=== PATIENT | male | born 1960 | race Caucasian/White ===

== ENCOUNTER 2022-08-14 14:03 | Inpatient (IN) | payer BC, SELFPAY ==
[2022-08-14] VITALS (11 sets, daily range): BP systolic 139–169; BP diastolic 73–99; PULSE 73–97; RESP 12–20; TEMP 37–37.2; O2SAT 98–100; BMI 21.6
--- NOTE | ~2022-08-14 | XR_ITS ---
EXAMINATION: XR chest 1V portable INDICATION: Pain after fall TECHNIQUE: Portable AP chest at 1433 hours COMPARISON: None available FINDINGS: The lungs are free of acute opacities. No pleural effusion or pneumothorax. The cardiomedia stinal silhouette is normal. There is mild irregularity in the posterolateral cortex of the right amara th rib. IMPRESSION: 1. No acute cardiopulmonary abnormality. 2. Mild irregularity of the posterolateral cortex of the right ninth rib consistent with age-indeterm inate fracture. Reviewed, dictated and finalized at location F. LOTINE OPERATOR IMPRESSION: 1. No acute cardiopulmonary abnormality. 2. Mild irregularity of the posterolateral cortex of the right ninth rib consis tent with age-indeterminate fracture.
--- NOTE | ~2022-08-14 | XR_ITS ---
XR hip RT 2V w AP pelvis DATE: 08/14/2022 14:55 INDICATION: Fall today. Right hip pain. TECHNIQUE: AP pelvis. AP, lateral and crosstable lateral views of right hip COMPARISON: None FINDINGS: There is a comminuted intertrochanteric fracture of the right hip. There is minimal lateral displacement. No right hip dislocation. Diffuse osteopenia. No pelvic fracture is evident. Alignment at the pubic symphysis and sacroiliac zainab ints. No fracture or dislocation of the left hip. There is degenerative disease of the lumbar spine. Abdominal aortic and bilateral iliac and femoral artery calcifications. IMPRESSION: Comminuted intertrochanteric right hip fracture Reviewed, dictated and finalized at location B. CLOCK INSPECTOR
--- NOTE | ~2022-08-14 | XR_ITS ---
XR surgery orthopedic DATE: 08/15/2022 14:39 INDICATION: ORIF right intertrochanteric hip fracture TECHNIQUE: Multiple spot C-arm images of the right hip and femur 1 minute 51 seconds fluoroscopy time 0.4671 mGym2 COMPARISON: 08/14/2022 right hip FINDINGS: There is antegrade femoral javier extending into the distal femoral shaft, with 2 through comp ression screws extending into the femoral head and another interlocking transverse screw at the proxi mal femoral shaft. There is virtually anatomic position and alignment of the major proximal and distal fracture fragment s, with a medially displaced lesser trochanteric fracture fragment. IMPRESSION: ORIF right intertrochanteric hip fracture Reviewed, dictated and finalized at Location A. Reviewed, dictated and finalized at location B. TIER
--- NOTE | ~2022-08-14 | CT_ITS ---
EXAMINATION: CT brain wo con DATE: 08/14/2022 14:56 INDICATION: Fall last night. Right hip fracture. TECHNIQUE: Computed tomography (CT) of the head was performed without intravenous contrast. The mA wa s adjusted according to patient size. Iterative reconstruction technique was employed. Exam dose: 60 5.33 mGy-cm total exam DLP. COMPARISON: None FINDINGS: Bilateral carotid siphon internal carotid artery calcifications. No intracranial mass lesion or hemorrhage or cerebrovascular accident. No midline shift or mass effec t effect. Normal ventricular size. No subdural or epidural hematoma. The orbital structures are unremarkable. Up to approximately 1.4 x 1.8 cm polyp or mucous retention cyst of the anterolateral aspect of the ri ght sphenoid sinus. The paranasal sinuses and mastoid air cells are otherwise unremarkable. No fracture or bone destruction of the cranial vault. IMPRESSION: No skull fracture or acute intracranial finding Cerebral atherosclerosis Reviewed, dictated and finalized at Location A. Reviewed, dictated and finalized at location B. 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
--- NOTE | 2022-08-14 14:14 | ECG_ITS ---
Measurements Intervals [place] Rate: 91 P: 74 MN: 146 QRS: 69 QRSD: 95 T: 77 QT: 395 QTc: 488 Interpretive Statements SINUS RHYTHM DELAYED PRECORDIAL R/S TRANSITION BASELINE ARTIFACT- I, II, III, AVR, AVL, AVF, V2-V6 BORDERLINE ECG NO PREVIOUS ECG AVAILABLE FOR COMPARISON Electronically Signed On 08-14-2022 15:21:44 VET ASSISTANT by Jun Farley D.O.
--- NOTE | 2022-08-14 14:34 | ED.LOWEXIN ---
HPI - Extremity Injury (Lower) General Chief Complaint: Extremity Injury, Lower Stated Complaint: hip pain Time Seen by Provider: 08/14/22 14:07 Source: RN notes reviewed History of Present Illness HPI Narrative: Patient presents emergency department from home via EMS for right hip pain. Patient states that last night he had been drinking alcohol and fell in his garage she states that he has been laying on the floor of his garage all night until he was found today he states he has severe right hip pain since the fall and has been able to move his right hip. He denies striking his head or any loss of consciousness he denies any chest pain shortness of breath abdominal pain nausea vomiting. He states he does drink daily and his last drink was last night. He states that he was wearing sandals and not shoes while he was laying in the garage Related Data Allergies Allergy/AdvReac Type Severity Reaction Status Date / Time No Known Allergies Allergy Mild Unverified 05/13/09 07:25 Review of Systems Review of Systems: Gen.: Denies fevers or chills Eyes: Denies eye pain or visual change ENT: Denies congestion Respiratory: Denies shortness of breath or cough CV: Denies chest pain or palpitations GI: Denies abdominal pain nausea, emesis Musculoskeletal: See HPI Neuro: Denies numbness, tingling, weakness or focal weakness Skin: Denies rash Except as documented, all other systems reviewed and negative COUNTS INCLUDE 234 BEDS AT THE [facility] Past Medical History Medical History (Updated 08/14/22 @ 16:58 by Chester Young DO) Patient denies significant medical history Social History Social History (Updated 08/14/22 @ 14:36 by Chester Young DO) Smoking status: Never smoker Exam Narrative: APPEARANCE: No acute distress, nontoxic, resting in bed EYES: EOMI PERRL HEENT: Normocephalic, atraumatic, OMM Neck: Supple no midline tenderness palpation full range of motion of the neck without pain RESPIRATORY: No respiratory distress Clear to auscultation bilaterally with no rhonchi wheezing or rales. CARDIOVASCULAR: Regular rate and rhythm without murmurs rubs or gallops. ABDOMINAL: Soft, nontender, nondistended, no rebound or guarding MUSCULOSKELETAl: Moves all extremities. No clubbing, cyanosis or edema. No tenderness of bilateral upper extremities and left lower extremity tender palpation diffusely of the right hip with pain with any movement the right hip no tenderness of the right knee or ankle dorsalis pedis pulses neurovascular intact NEURO: Awake and alert x 4. Following commands, speech normal, no focal deficits SKIN:: Warm, dry. No rashes lesions or abrasions PSYCHIATRIC: Normal affect/mood, Course Course Emergency Course: Discussed with Dr. Mcallister presentation work-up agrees with consult Discussed with GOLD Vazquez for Dr. lopez agrees with admission Discussed with patient and family results of workup and diagnosis. Discussed need for admission. Patient and family understand and agree to current treatment plan Vital Signs Vital signs: Vital Signs Temperature 99 F 08/14/22 14:09 Pulse Rate 86 08/14/22 14:09 Respiratory Rate 16 08/14/22 14:09 Blood Pressure 157/83 H 08/14/22 14:09 Pulse Oximetry 100 08/14/22 14:09 Temperature 99 F 08/14/22 14:09 Pulse Rate 87 08/14/22 16:01 Respiratory Rate 16 08/14/22 16:01 Blood Pressure 154/84 H 08/14/22 16:01 Pulse Oximetry 100 08/14/22 16:01 MDM - Extremity Injury (Lower) Lab Data Result diagrams: 08/14/22 15:11 08/14/22 15:11 Labs: Lab Results 08/14/22 08/14/22 08/14/22 Range/Units 15:11 15:11 15:11 WBC 12.8 H (4.5-10.0) K/mm3 RBC 3.82 L (4.6-6.20) M/mm3 Hgb 12.8 L (14.0-18.0) g/dL Hct 37.0 L (42.0-52.0) % MCV 96.9 (80-100) fl MCH 33.5 (26-34) pg MCHC 34.6 (32-36) g/dl RDW 12.7 (11.5-14.5) % Plt Count 213 (150-375) k/mm3 MPV 8.7 (7.4-10.4) fl Immature Gran % (Auto) 0.5
[2022-08-14] MEDS: MORPHINE SULFATE (*CRX) 4 MG/ML INJ IV PUSH ×4 (14:36→23:55)
[2022-08-14] MEDS: SODIUM CHLORIDE 0.9% IV 1,000 ML 999 ML IV CONT (14:36)
[2022-08-14] MEDS: THIAMINE HCL 200 MG/2 ML VIAL 100 MG IV PUSH (14:37)
[2022-08-14 15:27] LABS: Basophils Percent Auto 0.2 % (0.2-1.2); Eosinophils Percent Auto 0.2 % (0-4.4); Hemoglobin 12.8 g/dL (14.0-18.0); Immature Granulocyte Absolute 0.06 K/mm3 (0.00-0.031); Immature Granulocyte Percent A 0.5 % (0-0.5); Lymphocytes Absolute Auto 0.69 K/mm3 (0.9-3.2); Lymphocytes Percent Auto 5.4 % (18.3-44.2); Mean Corpuscular HGB Conc 34.6 g/dl (32-36); Mean Corpuscular Hemoglobin 33.5 pg (26-34); Mean Corpuscular Volume 96.9 fl (80-100); Mean Platelet Volume 8.7 fl (7.4-10.4); Monocytes Absolute Auto 0.6 K/mm3 (0.1-0.6); Monocytes Percent Auto 4.5 % (2.6-8.5); Neutrophils Absolute Auto 11.4 K/mm3 (1.3-6.7); Neutrophils Percent Auto 89.2 % (45.5-73.1); Platelet Count Result 213 k/mm3 (150-375); Red Blood Count 3.82 M/mm3 (4.6-6.20); Red Cell Distribution Width 12.7 % (11.5-14.5); White Blood Count 12.8 K/mm3 (4.5-10.0)
[2022-08-14 15:38] LABS: Appearance Urine Clear (Clear); Bilirubin Urine Negative (Negative); Blood Urine Trace-intact (Negative); Color Urine Yellow (Yellow); Glucose Urine UA Negative (Negative); Ketones Urine Negative (Negative); Leukocyte Esterase Ur Negative LEU/UL (Negative); Nitrate Urine Negative (Negative); Protein Urine Negative (Negative); Urobilinogen Urine 0.2 mg/dL (<2.0)
[2022-08-14 15:38] LABS: INR 1.1; Prothrombin Time 13.6 Seconds (11.1-14.7)
[2022-08-14 15:40] LABS: Partial Thromboplastin Time 26.2 SECONDS (22.3-36.8)
[2022-08-14 15:41] LABS: Ethanol 38 mg/dL (<10)
[2022-08-14 15:44] LABS: Alanine Aminotransferase 24 U/L (6-50); Albumin Level 4.3 g/dL (3.5-5.1); Alkaline Phosphatase 50 U/L (38-126); Anion Gap 12 mmol/L (8-16); Aspartate Amino Transferase 32 U/L (17-59); Bilirubin,Total 0.6 mg/dL (0.2-1.3); Blood Urea Nitrogen 6 mg/dL (9-20); Calcium 8.3 mg/dL (8.4-10.2); Carbon Dioxide 19 mmol/L (22-30); Chloride 98 mmol/L (98-107); Creatine Kinase 195 U/L (55-170); Estimated CRCL calculation 113 ml/min; Estimated Glomerular Filt Rate > 60; Glucose 97 mg/dL (65-110); Magnesium 1.9 mg/dL (1.6-2.3); Potassium 4.3 mmol/L (3.4-5.0); Sodium 129 mmol/L (137-145)
[2022-08-14 16:02] LABS: Influenza A QL RT-PCR Negative (Negative); Influenza B QL RT-PCR Negative (Negative); SARS-CoV-2 RNA PCR Negative
[2022-08-14 16:20] LABS: Mucus Urine Rare /lpf; Squamous Epithelial Cell Urine Rare /hpf (Few); WBC Urine 0-3 /hpf
[2022-08-14 16:22] LABS: Add Urine Microscopic? YES
[2022-08-14] MEDS: NICOTINE (*PBKC) 21 MG PATCH 1 PATCH TRANSDERM (17:58)
--- NOTE | 2022-08-14 18:10 | ADMGEN ---
This patient, Jose Mccoy, was admitted to Medical Room 256-. Patient/family oriented to hospital policies and general routines including ID bracelet, bed and alarms, visiting hours, pain management, procedures, bathroom and other care routines, personal items, smoking policy, room service/diet, and visiting hours. Information on how to activate the Rapid Response Team has been discussed. Patient/Family are encouraged to report perceived risks to care and to ask questions if they do not understand what they are told or what they should do.
[2022-08-14 21:28] LABS: Glucose Point of Care 111 mg/dl (65-105)
--- NOTE | 2022-08-14 23:44 | PM.IMHP ---
H&P: HPI History of Present Illness Date/Time: 08/14/22 22:30 Chief Complaint: Right hip pain after fall Narrative: This is a 62-year-old male patient who lives home alone. The patient admits to drinking at least 6 beers plus shots on a daily basis. The patient was brought into the emergency room via EMS after falling last night after drinking alcohol. The patient fell in his garage and had been laying on the floor in the garage all night until he was found today. The patient was complaining of severe right hip pain and has been able to move his right hip. However there is obvious external rotation and shortened right leg. The patient denies striking his head or losing consciousness. The patient stated that he was wearing sandals and not shoe swelling in the garage. He has no prior medical history. His white count was noted to be 12.8. His H&H is 12.8 and 37.0. His sodium level was 129. Right hip x-ray was read as comminuted intratrochanteric right hip fracture. Head CT was read as no skull fracture or acute intracranial finding. Cerebral atherosclerosis. Chest x-ray was read as no acute cardiopulmonary abnormality. Mild irregularity of the posterior lateral cortex of the right 9th rib consistent with age indeterminate fracture. The patient was given IV fluids in the emergency room as well as thiamin morphine and a nicotine patch. Ortho has been consulted. Ortho has been consulted. The patient is being admitted for observation status on the date of service of 08/14/2022. Review of Systems Review of Systems: See HPI All systems reviewed & are unremarkable except as noted in HPI and below Constitutional: Constitutional: Reports as per HPI and Reports no additional constitutional complaints Eyes: Eyes: Reports as per HPI and Reports no additional eye complaints ENT: Reports system reviewed and no additional complaints, except as documented and Reports Normal hearing present Cardiovascular: Cardiovascular: Reports no additional cardiovascular complaints Respiratory: Respiratory: Reports no additional respiratory complaints and Reports no additional respiratory complaints Gastrointestinal: Gastrointestinal: Reports as per HPI and Reports no additional gastrointestinal complaints Musculoskeletal: Musculoskeletal: Reports no additional musculoskeletal complaints Integumentary/Breasts: Skin/Breast: Reports system reviewed and no additional complaints, except as docu and Reports as per HPI Neurologic: Reports system reviewed and no additional complaints, except as documented, Reports as per HPI and Reports Normal hearing present Psychiatric: Psychiatric: Reports no additional psychiatric complaints and Reports as per HPI Endocrine: Endocrine: Reports no additional endocrine complaints Hematologic/Lymphatic: Hematologic/Lymphatic: Reports no additional hematologic/lymphatic complaints Allergic/Immunologic: Allergic/Immunologic: Reports no additional allergic/immunologic complaints [facility] Past Medical History Medical History (Updated 08/15/22 @ 00:18 by Taylor Betancourt NP) Tobacco abuse Surgical History Surgical History (Updated 08/15/22 @ 00:12 by Taylor Betancourt NP) History of appendectomy Family History Family History Mother Heart problem Father Emphysema lung Social History Social History (Updated 08/15/22 @ 00:14 by Taylor Betancourt NP) Social History: The patient smokes at least 2 packs of cigarettes a day. The patient lives home alone and is . He has 2 children. He does not have a durable power employee benefits attorney for healthcare. 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 The patient stated that he drinks 6+ beers daily sometimes he even drink shots with his 6 pack. Code status full code Smoking packs per day: 2 Smoking cigarettes per day: 40.0 Years smoked: 50 Smoking pack-year
[2022-08-15] VITALS (19 sets, daily range): BP systolic 119–155; BP diastolic 61–87; PULSE 69–88; RESP 13–18; TEMP 36.6–38.1; O2SAT 95–100
[2022-08-15 00:27] LABS: Glucose Point of Care 100 mg/dl (65-105)
[2022-08-15 00:30] LABS: Anion Gap 5 mmol/L (8-16); Blood Urea Nitrogen 9 mg/dL (9-20); Calcium 8.3 mg/dL (8.4-10.2); Carbon Dioxide 25 mmol/L (22-30); Chloride 100 mmol/L (98-107); Estimated CRCL calculation 113 ml/min; Estimated Glomerular Filt Rate > 60; Glucose 90 mg/dL (65-110); Sodium 130 mmol/L (137-145)
[2022-08-15] MEDS: DEXTROSE 5%/0.45% SOD CHL 1,000 ML 125 ML IV CONT (00:57)
[2022-08-15] MEDS: MORPHINE SULFATE (*CRX) 4 MG/ML INJ IV PUSH ×3 (02:40→08:56)
[2022-08-15 06:19] LABS: Basophils Percent Auto 0.4 % (0.2-1.2); Eosinophils Percent Auto 0.5 % (0-4.4); Hematocrit 30.8 % (42.0-52.0); Hemoglobin 10.8 g/dL (14.0-18.0); Immature Granulocyte Absolute 0.02 K/mm3 (0.00-0.031); Immature Granulocyte Percent A 0.3 % (0-0.5); Lymphocytes Absolute Auto 1.63 K/mm3 (0.9-3.2); Lymphocytes Percent Auto 22.1 % (18.3-44.2); Mean Corpuscular HGB Conc 35.1 g/dl (32-36); Mean Corpuscular Hemoglobin 33.1 pg (26-34); Mean Corpuscular Volume 94.5 fl (80-100); Mean Platelet Volume 8.9 fl (7.4-10.4); Monocytes Absolute Auto 0.9 K/mm3 (0.1-0.6); Monocytes Percent Auto 12.2 % (2.6-8.5); Neutrophils Absolute Auto 4.7 K/mm3 (1.3-6.7); Neutrophils Percent Auto 64.5 % (45.5-73.1); Platelet Count Result 178 k/mm3 (150-375); Red Blood Count 3.26 M/mm3 (4.6-6.20); Red Cell Distribution Width 12.6 % (11.5-14.5); White Blood Count 7.4 K/mm3 (4.5-10.0)
[2022-08-15 06:38] LABS: Alanine Aminotransferase 19 U/L (6-50); Albumin Level 3.3 g/dL (3.5-5.1); Alkaline Phosphatase 41 U/L (38-126); Anion Gap 5 mmol/L (8-16); Aspartate Amino Transferase 24 U/L (17-59); Bilirubin,Total 0.8 mg/dL (0.2-1.3); Blood Urea Nitrogen 8 mg/dL (9-20); Calcium 7.8 mg/dL (8.4-10.2); Carbon Dioxide 25 mmol/L (22-30); Chloride 99 mmol/L (98-107); Estimated CRCL calculation 113 ml/min; Estimated Glomerular Filt Rate > 60; Glucose 100 mg/dL (65-110); Potassium 3.9 mmol/L (3.4-5.0); Sodium 129 mmol/L (137-145)
[2022-08-15 06:41] LABS: Glucose Point of Care 106 mg/dl (65-105)
[2022-08-15 07:05] LABS: Sodium Urine Random 82 meq/L
--- NOTE | 2022-08-15 07:39 | PM.IMPN ---
Progress Note: A&P Assessment and Plan (1) Closed intertrochanteric fracture of right femur: Code(s): S72.141A - Displaced intertrochanteric fracture of right femur, initial encounter for closed fracture Status: Acute Assessment and Plan: -ortho has been consulted. -pain reasonably controlled per patient - cont. current. -NPO last night, procedure planned this afternoon. (2) Acute hyponatremia: Code(s): E87.1 - Hypo-osmolality and hyponatremia Status: Acute Assessment and Plan: - suspect beer potomania. - Change IVF from d5 half to d5 normal. - repeat bmp am. - urine osm pending, Na urine 82. If worsening consider free water restrict, cortisol/acth/tsh measurement. (3) Alcohol abuse: Code(s): F10.10 - Alcohol abuse, uncomplicated Status: Acute Assessment and Plan: - Ciwa protocol librium/lorazepam prn. - Thiamine/folate - recommend to cont. upon discharge. (4) Tobacco abuse: Code(s): Z72.0 - Tobacco use Status: Acute Assessment and Plan: 100 pack year history per patient. Does not have PCP or medical care routinely. - Recommend o/p low dose ct screening per uspstf guidelines. - Arrange for outpatient [facility] f/u PCP. (5) Normocytic anemia: Code(s): D64.9 - Anemia, unspecified Status: Acute Assessment and Plan: Hgb 12.8 on presentation, normocytic. 10.8 this am. Presume a dilutional effect 2/2 to fluids. Received TXA. - repeat cbc am (6) Fall: Code(s): W19.XXXA - Unspecified fall, initial encounter Status: Acute Assessment and Plan: Denies syncope/dizziness/lightheadedness. Tripped d/t pet. No LOC during fall. Down for >12 hours per patient. CPK 195. Time Spent With Patient Time with patient: 15 - 25 minutes Subjective Date/time seen: 08/15/22 07:39 Interval history: Patient c/o pain in right hip this morning with movement, notes pain is dull and somewhat improved from presentation with current medications - pain exacerbated by movement. Denies any loss of sensation distal right extremity. Review of Systems Review of Systems: Patient endorses 6-10 drinks daily, denies any hx seizures or withdrawal - does take occasional days off of drinking without symptoms Constitutional: Constitutional: Reports no additional constitutional complaints Cardiovascular: Cardiovascular: Reports no additional cardiovascular complaints Respiratory: Comments: - notes general slight morning cough. Gastrointestinal: Gastrointestinal: Reports no additional gastrointestinal complaints Genitourinary: Genitourinary: Reports no additional male genitourinary complaints Neurologic: Reports system reviewed and no additional complaints, except as documented Exam Narrative: No acute distress, patient coherent/conversational without tremor. Const: General: no acute distress Other: Pain with movement. Eyes: Sclera: sclerae normal Neck: Neck: supple Resp: Effort & Inspection: normal respiratory effort Auscultation: clear to auscultation bilaterally Cardio: Rate: regular rate Rhythm: regular rhythm Other: no m/r/g. GI: GI Palp: Yes Soft to palpation Skin: General skin exam: normal color Neuro: Speech: normal speech Sensory Exam: normal sensation Other: Bilat lower ext. distal sensation intact, nv intact. Extrem: Other: RLE external rotation - mildly tender to palpation of the right hip. Psych: Mental Status: mental status grossly normal Affect: normal affect Objective Data Vital Signs Vital Signs: Vital Signs - 24 hr 08/14/22 14:09 08/14/22 15:17 08/14/22 16:01 Temperature 99 F Pulse Rate 86 87 87 Respiratory Rate 16 12 16 Blood Pressure 157/83 H 152/95 H 154/84 H Pulse Oximetry 100 100 100 Oxygen Delivery 08/14/22 16:16 08/14/22 17:01 08/14/22 17:16 Temperature Pulse Rate 97 87 87 Respiratory Rate 13 12 15 Blood Pressure 156/91 H 169/87 H 160/99 H Pu
--- NOTE | 2022-08-15 07:47 | PM.CNOR ---
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 New problem denies any prior hip problems and has been in good health. He denies any other injury. He thought he might have hit his head but denies loss of consciousness from the fall but he recalls he did pass out due to the pain. CT of the brain showed no evidence of acute bleeding or trauma. He lost his he does have 2 children that are available for him. Is not sure that they would be able to stay with him continuously and he may require rehab during his recuperation. He drinks a great deal. He drinks a 6 pack every night and additional shots of hard liquor. He also smokes 2 packs of cigarettes a day and has smoked for 50 years. His oxygen saturation on room air is 96%. Nicotine patch has been applied. He has been started on thiamine folic acid and has p.r.n. Librium ordered in case he develops delirium tremens. On exam today is completely alert and oriented. He is excellent conversational list and historian. He denies any other areas of pain or injury other than the right hip. His right leg is quite short and externally rotated 90?. He has intact sensation in the right foot and palpable pedal pulses and wiggles his toes. He is thin. He is 74.4 kg. He has muscular legs. 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 Impression: Patient has a comminuted right intertrochanteric hip fracture. I have recommended internal fixation with trochanteric nail and sliding hip screw device. I have discussed risks of surgery with him detail. He has no personal history of DVT I explained he will be on a blood thinner after surgery for 5 weeks. Risk of infection was discussed which is higher in smokers. Risk of delayed healing is common in smokers and risk of arthritis developing discussed. He has anemia hemoglobin 10.8 and he has increased risk of needing transfusion. He is at risk for delirium tremens. Risk of mortality was discussed with him and all of his questions were answered. We are scheduled to proceed at 2:00 a.m. this afternoon. Patient will receive TXA before surgery as well as vancomycin and Ancef for prophylaxis against infection. History of Present Illness HPI Consult date: 08/15/22 Chief complaint: right hip fracture,hyponatremia,alcohol abuse PMFSH Past Medical History Medical History (Updated 08/15/22 @ 00:18 by Taylor Betancourt NP) Tobacco abuse Surgical History Surgical History (Updated 08/15/22 @ 00:12 by Taylor Betancourt NP) History of appendectomy Family History Family History Mother Heart problem Father Emphysema lung Social History Social History (Updated 08/15/22 @ 00:14 by Taylor Betancourt NP) Social History: The patient smokes at least 2 packs of cigarettes a day. The patient lives home alone and is . He has 2 children. He does not have a durable power criminal defense attorney for healthcare. 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 The patient stated that he drinks 6+ beers daily sometimes he even drink shots with his 6 pack. Code status full code Smoking packs per day: 2 Smoking cigarettes per day: 40.0 Years smoked: 50 Smoking pack-years: 100.00 Smoking status: Current every day smoker Tobacco type: cigarettes Alcohol intake: current Drinks per week: 60 Substance use type: marijuana Other substance u
[2022-08-15 08:33] LABS: Glucose Point of Care 117 mg/dl (65-105)
[2022-08-15] MEDS: THIAMINE HCL 200 MG/2 ML VIAL 100 MG IV PUSH (08:55)
[2022-08-15] MEDS: FOLIC ACID 1 MG/0.2 ML INJ IV PUSH (08:55)
[2022-08-15] MEDS: DEXTROSE 5%/0.9% SOD CHL 1,000 ML 125 ML IV CONT (10:40)
--- NOTE | 2022-08-15 10:43 | WPDANESEPPF ---
Anes - Initial Pre Proc Eval Procedure: Operation Date: 08/15/22 14:00 Proposed Procedures p Right Intertrochanteric Nail - Remigio Mcallister MD Date/Time: 08/15/22 10:43 Surgeon: Chata Bryson PA-C Pre Op Diagnosis: right hip fracture,hyponatremia,alcohol abuse Patient Data Age: 62 Gender: M Height: 1.85 m Weight: 74.4 kg Last Vital Signs Temp 36.6 C 08/15/22 06:00 Pulse 70 08/15/22 06:00 Resp 14 08/15/22 06:00 BP 119/61 08/15/22 08:00 Pulse Ox 96 08/15/22 06:00 O2 Del Method Room Air 08/15/22 10:37 Allergies Allergy/AdvReac Type Severity Reaction Status Date / Time No Known Allergies Allergy Mild Unverified 08/14/22 19:36 Home Medications Medication Instructions Recorded Confirmed Type No Home Medications 08/14/22 08/14/22 History Laboratory Tests 08/14/22 08/14/22 08/14/22 15:11 15:11 15:11 WBC 12.8 K/mm3 H K/mm3 (4.5-10.0) RBC 3.82 M/mm3 L M/mm3 (4.6-6.20) Hgb 12.8 g/dL L g/dL (14.0-18.0) Hct 37.0 % L % (42.0-52.0) MCV 96.9 fl fl (80-100) MCH 33.5 pg pg (26-34) MCHC 34.6 g/dl g/dl (32-36) RDW 12.7 % % (11.5-14.5) Plt Count 213 k/mm3 k/mm3 (150-375) MPV 8.7 fl fl (7.4-10.4) Immature Gran % (Auto) 0.5 % % (0-0.5) Neut % (Auto) 89.2 % H % (45.5-73.1) Lymph % (Auto) 5.4 % L % (18.3-44.2) [place] % (Auto) 4.5 % % (2.6-8.5) Eos % (Auto) 0.2 % % (0-4.4) Baso % (Auto) 0.2 % % (0.2-1.2) Lymph # (Auto) 0.69 K/mm3 L K/mm3 (0.9-3.2) [place] # (Auto) 0.6 K/mm3 K/mm3 (0.1-0.6) Eos # (Auto) 0.0 K/mm3 K/mm3 (0-0.3) Baso # (Auto) 0.0 K/mm3 K/mm3 (0.0-0.1) Abs Immat Gran (auto) 0.06 K/mm3 H K/mm3 (0.00-0.031) Absolute Neuts (auto) 11.4 K/mm3 H K/mm3 (1.3-6.7) Absolute Nucleated RBC 0.0 K/mm3 K/mm3 (0.0-0.012) Nucleated RBC % 0.0 % % (0.0-0.2) PT 13.6 Seconds Seconds (11.1-14.7) INR 1.1 APTT 26.2 SECONDS SECONDS (22.3-36.8) Sodium 129 mmol/L L mmol/L (137-145) Potassium 4.3 mmol/L mmol/L (3.4-5.0) Chloride 98 mmol/L mmol/L (98-107) Carbon Dioxide 19 mmol/L L mmol/L (22-30) Anion Gap 12 mmol/L mmol/L (8-16) BUN 6 mg/dL L mg/dL (9-20) Creatinine 0.60 mg/dL L mg/dL (0.7-1.3) Estim Creat Clear Calc 113 ml/min ml/min Estimated GFR > 60 (59 - ) Glucose 97 mg/dL mg/dL (65-110) POC Capillary Glucose Calcium 8.3 mg/dL L mg/dL (8.4-10.2) Magnesium 1.9 mg/dL mg/dL (1.6-2.3) Total Bilirubin 0.6 mg/dL mg/dL (0.2-1.3) AST 32 U/L U/L (17-59) ALT 24 U/L U/L (6-50) Alkaline Phosphatase 50 U/L U/L (38-126) Total Creatine Kinase 195 U/L H U/L (55-170) Total Protein 7.0 g/dL g/dL (6.3-8.2) Albumin 4.3 g/dL g/dL (3.5-5.1) Urine Color Urine Appearance Urine pH Ur Specific [place] Urine Protein Urine Glucose (UA) Urine Ketones Ur Blood (Man) Urine Nitrate Urine Bilirubin Urine Urobilinogen Leukocyte Esterase Rfl Urine RBC Urine WBC Ur Squamous Epith Cells Hyaline Casts Urine Mucus Urine Osmolality Ur Random Sodium Ethyl Alcohol Influenza A (RT-PCR) Influenza B (RT-PCR) SARS-CoV-2 RNA (RT-PCR) Blood Type Antibody Screen 08/14/22 08/14/22 08/14/22 15:11 15:11 15:11 WBC RBC Hgb Hct MCV
--- NOTE | 2022-08-15 12:48 | WPDHPUPDATE1 ---
History and Physical Update Update Date/Time: 08/15/22 12:48 History and Physical has been reviewed, including an updated exam of the patient. There are NO changes in the patient's condition. Risks, benefits, and alternatives have been discussed and questions answered. Patient agrees to proceed with procedure.
--- NOTE | 2022-08-15 12:53 | PC.NURSE ---
On 08/15/22, the student, [Lindsey Wade], provided care and completed [facility] documentation on this patient. I have reviewed the student's documentation and agree with the findings.
[2022-08-15] MEDS: TRANEXAMIC ACID 1,000MG/ISO100 1,000 MG/100 ML BAG 200 MG IVPB (13:00)
[2022-08-15] MEDS: LACTATED RINGERS 1,000 ML 30 ML IV CONT (13:00)
[2022-08-15] MEDS: ceFAZolin 2 GM/D5W 50 ML 2 GM/50 ML BAG IVPB (13:18)
[2022-08-15] MEDS: ceFAZolin SODIUM 1 GM VIAL (13:56)
--- NOTE | 2022-08-15 14:44 | SUR.OPER ---
150mL of yellow urine drained from savage at the end of the case
--- NOTE | 2022-08-15 15:07 | W.PM.PROC2 ---
Procedure Note - Detailed Date of Procedure 08/15/22 Pre-op Diagnosis Four part right intertrochanteric hip fracture,hyponatremia,alcohol abuse Post-op Diagnosis Same Procedure Performed Open reduction internal fixation right intertrochanteric hip fracture with Arthrex ES trochanteric nail device Surgeon Remigio Mcallister MD Air Quality Technician Carine Antonio Anesthesia General Description of Procedure Patient was brought to the operating room and general anesthesia was administered. The right hip and thigh were carefully scrubbed with chlorhexidine cloth after clipping the hair. He was moved to the fracture table longitudinal traction applied and internal rotation to neutral and fluoro was showed us that we had excellent alignment on the AP and lateral views. The lesser trochanter was a single fragment and displaced proximally little bit. The right hip and thigh were prepped draped usual fashion. He received 2 g of Ancef 1 g of vancomycin 1 g of tranexamic acid preoperatively. A 1/2 inch longitudinal incision was made proximal to greater trochanter. Fascia was incised guide pin inserted down the tip of the greater trochanter and its position confirmed under fluoroscopy and the starter awl used to prepare the proximal trochanteric region. A long guide javier was inserted. We reamed to 13 mm and a 36 cm x 11 mm Arthrex ES 130 degree trochanteric nail was inserted under manual pressure to the appropriate depth. Guide pin was inserted in the femoral head lateral view slightly below center on the AP view and anti rotation pin placed. We reamed and inserted a 105 mm lag screw the came to about 10 mm from subchondral bone and the crown of the sliding screw flush with the lateral cortex. Excellent purchase. The screw was locked to the javier and the activator screw removed. An 85 mm anti-rotational screw was placed. A single interlocking screw was placed in the mid shaft hole without difficulty completing the fixation. Wounds were irrigated with antibiotic solution. Fascia closed the proximal 2 incisions with 1. Vicryl skin closed 2 7 is Vicryl and glue EBL was 100 cc. There were no complications he was transferred postop recovery room in stable condition. Complications No immediate complications Condition Stable Disposition PACU
[2022-08-15] MEDS: fentaNYL CITRATE INJ (*CRX) 100 MCG/2 ML VIAL 25 MCG IV PUSH (15:42)
--- NOTE | 2022-08-15 16:11 | SUR.PHASEI ---
Patient told RN there was no meed to update family while in recovery.
--- NOTE | 2022-08-15 16:19 | SUR.PHASEI ---
Floor RN unavailable for report and has to call back.
--- NOTE | 2022-08-15 17:10 | PC.NURSE ---
Pt return from surgery at 1710
[2022-08-15 17:43] LABS: Glucose Point of Care 123 mg/dl (65-105)
[2022-08-15] MEDS: ACETAMINOPHEN 500 MG TABLET 1000 MG PO ×2 (17:44→22:50)
[2022-08-15] MEDS: SENNA/DOCUSATE SODIUM TABLET 2 TAB PO (18:41)
[2022-08-15] MEDS: oxyCODONE HCL (*CRX) 5 MG TAB IR PO (19:54)
[2022-08-15] MEDS: NICOTINE (*PBKC) 21 MG PATCH 1 PATCH TRANSDERM (22:50)
[2022-08-16] VITALS (13 sets, daily range): BP systolic 113–136; BP diastolic 69–78; PULSE 72–99; RESP 18–20; TEMP 36.7–38.3; O2SAT 95–100
[2022-08-16] MEDS: oxyCODONE HCL (*CRX) 5 MG TAB IR PO ×6 (00:14→20:24)
[2022-08-16 05:52] LABS: Basophils Absolute Auto 0.1 K/mm3 (0.0-0.1); Basophils Percent Auto 0.7 % (0.2-1.2); Eosinophils Absolute Auto 0.1 K/mm3 (0-0.3); Eosinophils Percent Auto 0.6 % (0-4.4); Hematocrit 28.5 % (42.0-52.0); Hemoglobin 9.8 g/dL (14.0-18.0); Immature Granulocyte Absolute 0.02 K/mm3 (0.00-0.031); Immature Granulocyte Percent A 0.2 % (0-0.5); Lymphocytes Absolute Auto 1.77 K/mm3 (0.9-3.2); Lymphocytes Percent Auto 21.6 % (18.3-44.2); Mean Corpuscular HGB Conc 34.4 g/dl (32-36); Mean Corpuscular Hemoglobin 32.6 pg (26-34); Mean Corpuscular Volume 94.7 fl (80-100); Mean Platelet Volume 8.9 fl (7.4-10.4); Monocytes Percent Auto 11.8 % (2.6-8.5); Neutrophils Absolute Auto 5.3 K/mm3 (1.3-6.7); Neutrophils Percent Auto 65.1 % (45.5-73.1); Platelet Count Result 174 k/mm3 (150-375); Red Blood Count 3.01 M/mm3 (4.6-6.20); Red Cell Distribution Width 12.3 % (11.5-14.5); White Blood Count 8.2 K/mm3 (4.5-10.0)
[2022-08-16 06:02] LABS: Alanine Aminotransferase 18 U/L (6-50); Albumin Level 3.1 g/dL (3.5-5.1); Alkaline Phosphatase 37 U/L (38-126); Anion Gap 7 mmol/L (8-16); Aspartate Amino Transferase 26 U/L (17-59); Bilirubin,Total 0.6 mg/dL (0.2-1.3); Blood Urea Nitrogen 9 mg/dL (9-20); Calcium 7.9 mg/dL (8.4-10.2); Carbon Dioxide 27 mmol/L (22-30); Chloride 95 mmol/L (98-107); Estimated CRCL calculation 98 ml/min; Estimated Glomerular Filt Rate > 60; Glucose 104 mg/dL (65-110); Potassium 3.3 mmol/L (3.4-5.0); Sodium 129 mmol/L (137-145)
[2022-08-16] MEDS: FOLIC ACID 1 MG/0.2 ML INJ IV PUSH (08:56)
[2022-08-16] MEDS: APIXABAN 2.5 MG TABLET PO ×2 (08:58→20:24)
[2022-08-16] MEDS: THIAMINE HCL 200 MG/2 ML VIAL 100 MG IV PUSH (08:58)
[2022-08-16] MEDS: SENNA/DOCUSATE SODIUM TABLET 2 TAB PO ×2 (08:58→18:03)
[2022-08-16] MEDS: polyethylene glycoL 3350 17 GM POWD.PACK PO (08:59)
[2022-08-16] MEDS: NICOTINE (*PBKC) 21 MG PATCH 1 PATCH TRANSDERM (08:59)
--- NOTE | 2022-08-16 09:09 | WPDANESPN ---
Anes - Prog Note Post-Op Date/Time: 08/16/22 09:09 Cardiovascular status: normal Respiratory status: normal Airway patency: baseline Mental status: baseline Post-Op hydration status: normal Vital Signs: Last Vital Signs Temp 36.8 C 08/16/22 04:15 Pulse 83 08/16/22 04:15 Resp 20 08/16/22 04:15 BP 113/69 08/16/22 04:15 Pulse Ox 95 08/16/22 04:15 O2 Del Method Room Air 08/15/22 20:00 O2 Flow Rate 6 08/15/22 15:25 Pain Score (VAS): 12/05 I/O: Intake & Output 08/15/22 08/16/22 08/16/22 23:59 07:59 15:59 Intake Total 810 540 Output Total 300 Balance 810 240 Laboratory Tests 08/16/22 05:14 08/16/22 05:13 08/15/22 08/16/22 08/16/22 17:19 05:13 05:14 WBC 8.2 RBC 3.01 L Hgb 9.8 L Hct 28.5 L MCV 94.7 MCH 32.6 MCHC 34.4 RDW 12.3 Plt Count 174 MPV 8.9 Immature Gran % (Auto) 0.2 Neut % (Auto) 65.1 Lymph % (Auto) 21.6 [place] % (Auto) 11.8 H Eos % (Auto) 0.6 Baso % (Auto) 0.7 Lymph # (Auto) 1.77 [place] # (Auto) 1.0 H Eos # (Auto) 0.1 Baso # (Auto) 0.1 Abs Immat Gran (auto) 0.02 Absolute Neuts (auto) 5.3 Absolute Nucleated RBC 0.0 Nucleated RBC % 0.0 Sodium 129 L Potassium 3.3 L Chloride 95 L Carbon Dioxide 27 Anion Gap 7 L BUN 9 Creatinine 0.70 Estim Creat Clear Calc 98 Estimated GFR > 60 Glucose 104 POC Capillary Glucose 123 H Calcium 7.9 L Total Bilirubin 0.6 AST 26 ALT 18 Alkaline Phosphatase 37 L Total Protein 6.0 L Albumin 3.1 L Vitamin D 25-Hydroxy 08/16/22 05:14 WBC RBC Hgb Hct MCV MCH MCHC RDW Plt Count MPV Immature Gran % (Auto) Neut % (Auto) Lymph % (Auto) [place] % (Auto) Eos % (Auto) Baso % (Auto) Lymph # (Auto) [place] # (Auto) Eos # (Auto) Baso # (Auto) Abs Immat Gran (auto) Absolute Neuts (auto) Absolute Nucleated RBC Nucleated RBC % Sodium Potassium Chloride Carbon Dioxide Anion Gap BUN Creatinine Estim Creat Clear Calc Estimated GFR Glucose POC Capillary Glucose Calcium Total Bilirubin AST ALT Alkaline Phosphatase Total Protein Albumin Vitamin D 25-Hydroxy Pending Post-procedural complaints: none Patient Feedback: Patient satisfied with anesthetic care.
[2022-08-16 09:49] LABS: Vitamin D 25 Hydroxy < 12.8 ng/mL
--- NOTE | 2022-08-16 10:00 | PM.IMPN ---
Progress Note: A&P Assessment and Plan (1) Closed intertrochanteric fracture of right femur: Code(s): S72.141A - Displaced intertrochanteric fracture of right femur, initial encounter for closed fracture Status: Acute Assessment and Plan: POD 1 of S/P right hip repair ortho has been consulted. pain reasonably controlled per patient - cont. current. Ortho to manage post op DVT per ortho, Oli PT/OT (2) Acute hyponatremia: Code(s): E87.1 - Hypo-osmolality and hyponatremia Status: Acute Assessment and Plan: - Current Na is 129 - suspect beer potomania. - Change IVF to NS at 100ml/hr - Continue to trend labs - urine osm pending, Na urine 82 - Stable at this time (3) Alcohol abuse: Code(s): F10.10 - Alcohol abuse, uncomplicated Status: Acute Assessment and Plan: - Ciwa protocol librium/lorazepam prn. - Thiamine/folate - recommend to cont. upon discharge. - Seems stable - CIWA appears to be 0 at this time (4) Tobacco abuse: Code(s): Z72.0 - Tobacco use Status: Acute Assessment and Plan: - 100 pack year history per patient. Does not have PCP or medical care routinely. - Recommend o/p low dose ct screening per uspstf guidelines. - Arrange for outpatient custodial f/u PCP. - Patch and gum PRN - Education given (5) Normocytic anemia: Code(s): D64.9 - Anemia, unspecified Status: Acute Assessment and Plan: Hgb 12.8 on presentation Current H/H 9.8/28.5 Probably a combination of dilution, acute blood loss, or possibly related to supplemental need Anemia labs in the am Transfuse as indicated (6) Fall: Code(s): W19.XXXA - Unspecified fall, initial encounter Status: Acute Assessment and Plan: Denies syncope/dizziness/lightheadedness. Tripped d/t pet. No LOC during fall. Down for >12 hours per patient. CPK 195. Plan Constipation- he does have senna and miralax on board Time Spent With Patient Time with patient: Greater than 35 minutes Subjective Date/time seen: 08/16/22 1000 Interval history: 08/16/22 1000 Patient was sitting in the chair. Patient stated that it was nice getting out of bed. He did state that he was having severe pain especially with moving around. His pain while walking was a 10/10. However he did state that he was having 4/10 pain just sitting. He did state that it is a continuous constant pain in hip. He also denies any chest pain, shortness a breath, nausea, vomiting, diarrhea. He did state that he could possibly be constipated as he has not had a bowel movement since last Thursday. 08/15/22? 07:39 Patient c/o pain in right hip this morning with movement, notes pain is dull and somewhat improved from presentation with current medications - pain exacerbated by movement.? Denies any loss of sensation distal right extremity.? 08/14/22? 22:30 This is a 62-year-old male patient who lives home alone.? The patient admits to drinking at least 6 beers plus shots on a daily basis.? The patient was brought into the emergency room via EMS after falling last night after drinking alcohol.? The patient fell in his garage and had been laying on the floor in the garage all night until he was found today.? The patient was complaining of severe right hip pain and has been able to move his right hip.? However there is obvious external rotation and shortened right leg.? The patient denies striking his head or losing consciousness.? The patient stated that he was wearing sandals and not shoe swelling in the garage.? He has no prior medical history.? His white count was noted to be 12.8.? His H&H is 12.8 and 37.0.? His sodium level was 129.? Right hip x-ray was read as comminuted intratrochanteric right hip fracture.? Head CT was read as no skull fracture or acute intracranial finding.? Cerebral atheroscleros
[2022-08-16] MEDS: ACETAMINOPHEN 500 MG TABLET 1000 MG PO ×3 (11:30→22:52)
--- NOTE | 2022-08-16 12:30 | PM.PNORT ---
Progress Note: A&P Assessment and Plan (1) Closed intertrochanteric fracture of right femur: Code(s): S72.141A - Displaced intertrochanteric fracture of right femur, initial encounter for closed fracture Status: Acute Assessment and Plan: Patient is postoperative day 1 after internal fixation of right 4 part intertrochanteric hip fracture. He is afebrile with stable vital signs. His O2 sat is 96% on room air. Hemoglobin is 9.8 representing acute blood loss anemia. His admission hemoglobin was 12.7 which is below normal so he had pre-existing anemia at admission. His 25 hydroxy vitamin-D level is extremely low at less than 12.8. We will supplement. Will also order calcium plus vitamin-D supplementation. On an outpatient basis it would be appropriate to obtain a bone density test to see if he has osteoporosis. His risk factors would be alcoholism and smoking and comminuted intertrochanteric hip fracture from ground level fall. His sodium is still 129 unchanged for admission. Patient is completely alert and oriented. He denies feeling jittery. He is able to hold his hand with his fingers spread out with normal steadiness. He has been up walk to the bathroom partial weight-bearing and is sitting in the chair has been up for a couple of hours and is comfortable. I have discussed with him that he can have the 1 pain pill every 4 hours or he can ask for 2 if he needs it. Patient is hoping to go home from here rather than go to a rehab facility and I think that is a reasonable goal for him. He has family that can come check on him frequently as well as friends. I explained him that he needs to be able to get up and down from a chair safely and get in and out of bed safely and make it to the bathroom independently if he is considered to be safe to go home as he lives by himself there will be times where he does not have someone assisting him. We will shoot for discharge on Thursday and perhaps discharge home with home health care on Thursday if he is doing well enough. If he needs more assistance he will need to go to rehab facility for a period of time. Subjective Subjective Date/Time Seen: 08/16/22 12:30 Objective Data Vital Signs Vital Signs: Vital Signs - 24 hr 08/15/22 13:15 08/15/22 14:57 08/15/22 15:10 Temperature 38.1 C H 36.8 C Pulse Rate 75 87 70 Respiratory Rate 16 16 16 Blood Pressure 153/79 H 140/75 155/78 H Pulse Oximetry 97 100 100 Oxygen Delivery Room Air Simple Face Mask Simple Face Mask Oxygen Flow Rate 6 6 08/15/22 15:25 08/15/22 15:40 08/15/22 15:55 Temperature Pulse Rate 69 73 77 Respiratory Rate 13 17 15 Blood Pressure 152/79 H 145/70 H 146/80 H Pulse Oximetry 100 100 Oxygen Delivery Simple Face Mask Room Air Room Air Oxygen Flow Rate 6 08/15/22 16:10 08/15/22 16:25 08/15/22 16:40 Temperature Pulse Rate 77 84 85 Respiratory Rate 16 16 14 Blood Pressure 132/81 143/79 H 148/78 H Pulse Oximetry 96 99 Oxygen Delivery Room Air Room Air Room Air Oxygen Flow Rate 08/15/22 17:15 08/15/22 17:30 08/15/22 18:10 Temperature 36.8 C 36.9 C 37.2 C Pulse Rate 84 76 88 Respiratory Rate 18 17 17 Blood Pressure 149/83 H 143/76 H 133/87 Pulse Oximetry 99 97 98 Oxygen Delivery Oxygen Flow Rate 08/15/22 20:00 08/15/22 21:04 08/16/22 00:05 Temperature 36.8 C 37.0 C Pulse Rate 88 69 81 Respiratory Rate 17 18 20 Blood Pressure 122/68 132/78 Pulse Oximetry 98 95 96 Oxygen Delivery Room Air Oxygen Flow Rate 08/16/22 04:15 08/15/22 20:00 08/16/22 00:00 Temperature 36.8 C Pulse Rate 83 86 72 Respiratory Rate 20 Blood Pressure 113/69 Pulse Oximetry 95 Oxygen Delivery Oxygen Flow Rate 08/16/22 04:00 08/16/22 08:10 08/16/22 08:00 Temperature Pulse Rate 74 Respiratory Rate Blood Pressure 113/69 Pulse Oximetry Oxygen Delivery Room Air Oxygen Flow Rate 08/16/22 08:00 08/16/22 08:00 08/16/22 11:04 Temp
[2022-08-16 12:34] LABS: Glucose Point of Care 273 mg/dl (65-105)
[2022-08-16 12:57] LABS: Iron 24 ug/dL (49-181)
[2022-08-16 13:05] LABS: Transferrin 151 mg/dL (206-381)
[2022-08-16 13:09] LABS: Percent Iron Saturation 11 % (20-50)
[2022-08-16] MEDS: SODIUM CHLORIDE 0.9% IV 1,000 ML 100 ML IV CONT (13:22)
[2022-08-16] MEDS: ERGOCALCIFEROL 50,000 UNITS CAPSULE 50000 UNITS PO (13:23)
[2022-08-16 14:04] LABS: Folic Acid 5.3 ng/mL (2.76->20)
[2022-08-16] MEDS: FERROUS SULFATE 324 MG TABLET PO (18:04)
[2022-08-16] MEDS: IBUPROFEN 600 MG TABLET PO (20:23)
[2022-08-16 21:01] LABS: Glucose Point of Care 118 mg/dl (65-105)
[2022-08-16 21:19] LABS: Appearance Urine Clear (Clear); Bilirubin Urine Negative (Negative); Blood Urine 1+ (Negative); Color Urine Yellow (Yellow); Glucose Urine UA Negative (Negative); Ketones Urine Negative (Negative); Leukocyte Esterase Ur Negative LEU/UL (Negative); Nitrate Urine Negative (Negative); Protein Urine Negative (Negative); Specific Grav Ur 1.015 (1.001-1.035); Urobilinogen Urine 0.2 mg/dL (<2.0)
[2022-08-16 21:22] LABS: Add Urine Microscopic? YES; Bacteria Urine Trace /hpf; Mucus Urine Rare /lpf; WBC Urine 0-3 /hpf
[2022-08-16 21:23] LABS: Sodium Urine Random 43 meq/L
[2022-08-16 21:31] LABS: Creatinine Urine 101.2 mg/dL
--- NOTE | 2022-08-16 22:03 | PC.NURSE ---
VERNELL ALLISON ORDERED BUT WHEN HOUSE [facility]P CALLED SHE STATED WE ARE NOT ABLE TO DO VERNELL ALLISON ON MED FLOOR. CALLED [facility] AND SHE SAID INSTEAD TRY GEL/ICE PACKS INSTEAD TO KEEP PT COOL BC HE HAS BEEN RUNNING A TEMP INTERMITTENTLY.
[2022-08-16] MEDS: NICOTINE (*PBKC) 4 MG GUM PO (22:52)
[2022-08-17] MEDS: SODIUM CHLORIDE 0.9% IV 1,000 ML 100 ML IV CONT ×2 (00:48→17:22)
[2022-08-17] MEDS: oxyCODONE HCL (*CRX) 5 MG TAB IR PO ×6 (00:48→20:38)
[2022-08-17 00:53] LABS: Glucose Point of Care 89 mg/dl (65-105)
[2022-08-17 03:35] VITALS: BP 131/62; PULSE 64; RESP 17; TEMP 36.6; O2SAT 100
[2022-08-17 04:48] LABS: Basophils Absolute Auto 0.1 K/mm3 (0.0-0.1); Basophils Percent Auto 0.9 % (0.2-1.2); Eosinophils Absolute Auto 0.1 K/mm3 (0-0.3); Eosinophils Percent Auto 1.3 % (0-4.4); Hematocrit 26.4 % (42.0-52.0); Hemoglobin 8.9 g/dL (14.0-18.0); Immature Granulocyte Absolute 0.04 K/mm3 (0.00-0.031); Immature Granulocyte Percent A 0.5 % (0-0.5); Lymphocytes Absolute Auto 1.89 K/mm3 (0.9-3.2); Lymphocytes Percent Auto 25.4 % (18.3-44.2); Mean Corpuscular HGB Conc 33.7 g/dl (32-36); Mean Corpuscular Hemoglobin 33.2 pg (26-34); Mean Corpuscular Volume 98.5 fl (80-100); Mean Platelet Volume 8.8 fl (7.4-10.4); Monocytes Absolute Auto 0.9 K/mm3 (0.1-0.6); Monocytes Percent Auto 11.4 % (2.6-8.5); Neutrophils Absolute Auto 4.5 K/mm3 (1.3-6.7); Neutrophils Percent Auto 60.5 % (45.5-73.1); Platelet Count Result 160 k/mm3 (150-375); Red Blood Count 2.68 M/mm3 (4.6-6.20); Red Cell Distribution Width 12.3 % (11.5-14.5); White Blood Count 7.4 K/mm3 (4.5-10.0)
[2022-08-17 05:01] LABS: Anion Gap 4 mmol/L (8-16); Blood Urea Nitrogen 9 mg/dL (9-20); Calcium 7.8 mg/dL (8.4-10.2); Carbon Dioxide 26 mmol/L (22-30); Chloride 98 mmol/L (98-107); Estimated CRCL calculation 87 ml/min; Estimated Glomerular Filt Rate > 60; Glucose 82 mg/dL (65-110); Potassium 3.6 mmol/L (3.4-5.0); Sodium 128 mmol/L (137-145)
[2022-08-17] MEDS: ACETAMINOPHEN 500 MG TABLET 1000 MG PO ×3 (05:05→17:22)
[2022-08-17 07:58] LABS: Glucose Point of Care 85 mg/dl (65-105)
[2022-08-17] MEDS: THIAMINE HCL 200 MG/2 ML VIAL 100 MG IV PUSH (09:12)
[2022-08-17] MEDS: polyethylene glycoL 3350 17 GM POWD.PACK PO (09:12)
[2022-08-17] MEDS: NICOTINE (*PBKC) 21 MG PATCH 1 PATCH TRANSDERM (09:12)
[2022-08-17] MEDS: FERROUS SULFATE 324 MG TABLET PO ×2 (09:13→17:22)
[2022-08-17] MEDS: FOLIC ACID 1 MG/0.2 ML INJ IV PUSH (09:13)
[2022-08-17] MEDS: SENNA/DOCUSATE SODIUM TABLET 2 TAB PO ×2 (09:13→17:22)
[2022-08-17] MEDS: APIXABAN 2.5 MG TABLET PO ×2 (09:13→20:38)
--- NOTE | 2022-08-17 09:23 | PM.PNORT ---
Progress Note: A&P Assessment and Plan (1) Closed intertrochanteric fracture of right femur: Code(s): S72.141A - Displaced intertrochanteric fracture of right femur, initial encounter for closed fracture Status: Acute Assessment and Plan: Patient is postoperative day 2. After internal fixation right 4 part intertrochanteric hip fracture. Feels he is making progress. Is able to stand up and sit down independently which he demonstrated for me today. His wounds are dry. There is no leg swelling. He is alert and oriented. Oxygen saturation 100% on room air today. He has hemoglobin 8 point 9. Platelets normal. Iron studies show low iron but normal ferritin interpretation pending. Sodium is a little bit lower today at 128.. It has been [id number] the last few days. Patient feels that he will be able to go home tomorrow if he can learn how to negotiate 1 step and get in and out of a car and physical therapy is working with him. Labs ordered again for the morning. Subjective Subjective Date/Time Seen: 08/17/22 09:23 Objective Data Vital Signs Vital Signs: Vital Signs - 24 hr 08/16/22 11:04 08/16/22 14:41 08/16/22 18:41 Temperature 38.3 C H 37.8 C H 37.7 C H Pulse Rate 99 84 83 Respiratory Rate 18 18 18 Blood Pressure 115/71 129/69 136/71 Pulse Oximetry 98 98 96 Oxygen Delivery 08/16/22 19:45 08/16/22 20:23 08/16/22 20:00 Temperature 38.1 C H 38.1 C H Pulse Rate 85 Respiratory Rate 18 Blood Pressure 136/71 Pulse Oximetry 97 Oxygen Delivery Room Air 08/16/22 21:14 08/16/22 21:23 08/16/22 23:24 Temperature 37.7 C H 37.7 C H 36.7 C Pulse Rate 84 Respiratory Rate 18 Blood Pressure 136/75 Pulse Oximetry 100 Oxygen Delivery 08/17/22 03:35 08/17/22 08:10 Temperature 36.6 C Pulse Rate 64 Respiratory Rate 17 Blood Pressure 131/62 Pulse Oximetry 100 Oxygen Delivery Room Air Intake/Output Intake/Output: Intake & Output 08/14/22 08/15/22 08/16/22 08/17/22 23:59 23:59 23:59 23:59 Intake Total 1000 1060 2780 200 Output Total 981 313 8441 Balance 1551 778 0212 -900 Meds/Results Medications: Active Medications Generic Name Dose Route Start Last Admin Trade Name Freq PRN Reason Stop Dose Admin Acetaminophen 1,000 mg 08/15/22 18:00 08/17/22 05:05 Acetaminophen 500 Mg Tablet PO 1,000 mg Q6HR KAMI Administration Albuterol 2 puff 08/15/22 00:15 Albuterol Sulfate (*Sp) Aerosol 1 Puff INHALATION Q6HRT PRN Shortness Of Breath Apixaban 2.5 mg 08/16/22 09:00 08/17/22 09:13 Apixaban 2.5 Mg Tablet PO 2.5 mg Q12HR KAMI Administration Calcium Citrate 1 tablet 08/16/22 17:00 08/17/22 09:13 Calcium Citrate 315 Mg/Vitamin D 250 Units Tab PO 1 tablet BID KAMI Administration Chlordiazepoxide HCl 25 mg 08/15/22 00:03 Chlordiazepoxide (*Crx) 25 Mg Capsule PO Q6H PRN Withdrawal Ergocalciferol 50,000 units 08/16/22 13:00 08/16/22 13:23 Ergocalciferol 50,000 Units Capsule PO 09/20/22 09:01 50,000 units WEEKLY KAMI Administration Ferrous Sulfate 324 mg 08/16/22 17:00 08/17/22 09:13 Ferrous Sulfate 324 Mg Tablet PO 324 mg BIDWM KAMI Administration Folic Acid 1 mg 08/15/22 09:00 08/17/22 09:13 Folic Acid 1 Mg/0.2 Ml Inj IV PUSH 1 mg QAM KAMI Administration Haloperidol Lactate 2 mg 08/15/22 00:03 Haloperidol Lactate 5 Mg/Ml Vial IV PUSH Q2H PRN Delirium Sodium Chloride 1,000 mls @ 100 mls/hr 08/16/22 12:40 08/17/22 00:48 Normal Saline Iv IV CONT 100 mls/hr .Q10H KAMI Administration Lorazepam 2 mg 08/15/22 00:03 Lorazepam Inj (*Crx) 2 Mg/Ml Vial IV PUSH Q4H PRN Withdrawal Morphine Sulfate 2 mg 08/15/22 16:56 Morphine Sulfate (*Crx) 2 Mg/Ml Inj IV PUSH Q1H PRN Pain Rated 7-10 Naloxone HCl 0.1 mg 08/15/22 16:56 Naloxone Hcl 0.4 Mg/Ml Vial IV PUSH Q2M PRN Opiate Reversal Nicotine 1 patch 11
[2022-08-17] MEDS: NICOTINE (*PBKC) 4 MG GUM PO ×4 (09:28→20:37)
--- NOTE | 2022-08-17 11:45 | PM.IMPN ---
Progress Note: A&P Assessment and Plan (1) Closed intertrochanteric fracture of right femur: Code(s): S72.141A - Displaced intertrochanteric fracture of right femur, initial encounter for closed fracture Status: Acute Assessment and Plan: POD 2 of S/P right hip repair ortho has been consulted. pain reasonably controlled per patient - cont. current. Ortho to manage post op DVT per ortho, [facility]ell[facility] PT/OT (2) Acute hyponatremia: Code(s): E87.1 - Hypo-osmolality and hyponatremia Status: Acute Assessment and Plan: - Current Na is 128 - suspect beer potomania. - Change IVF to NS at 100ml/hr - Continue to trend labs - urine osm pending, Na urine 43 - TSH 3.720 - Check cortisol and ATCH in the am (3) Alcohol abuse: Code(s): F10.10 - Alcohol abuse, uncomplicated Status: Acute Assessment and Plan: - Ciwa protocol librium/lorazepam prn. - Thiamine/folate - recommend to cont. upon discharge. - Seems stable - CIWA appears to be 0 at this time (4) Tobacco abuse: Code(s): Z72.0 - Tobacco use Status: Acute Assessment and Plan: - 100 pack year history per patient. Does not have PCP or medical care routinely. - Recommend o/p low dose ct screening per uspstf guidelines. - Arrange for outpatient half-way f/u PCP. - Patch and gum PRN - Education given (5) Normocytic anemia: Code(s): D64.9 - Anemia, unspecified Status: Acute Assessment and Plan: Hgb 12.8 on presentation Current H/H 8.9/26.4 Probably a combination of dilution, acute blood loss, or possibly related to supplemental need Anemia labs iron 24, TIBC 226, % sat 11, Transferrin 151, Ferritin 250, B12 255, Folate 5.3 Start ferrous sulfate 324mg PO BID Continue to trend labs Transfuse as indicated (6) Fall: Code(s): W19.XXXA - Unspecified fall, initial encounter Status: Acute Assessment and Plan: Denies syncope/dizziness/lightheadedness. Tripped d/t pet. No LOC during fall. Down for >12 hours per patient. CPK 195. (7) Fever: Code(s): R50.9 - Fever, unspecified Status: Acute Assessment and Plan: Temp noted to be between 99.8-100.9 Blood cultures drawn Tylenol on board Continue to trend (8) Vitamin D deficiency: Code(s): E55.9 - Vitamin D deficiency, unspecified Status: Acute Assessment and Plan: Vit D <12.8 supplementation added Time Spent With Patient Time with patient: Greater than 35 minutes Subjective Date/time seen: 08/17/22 1145 Interval history: 08/17/22 114 Patient was walking up and down the acosta and did well. He states that he feels great and he thinks that he be able to go home tomorrow he denies any chest pain, shortness a breath, nausea, vomiting, diarrhea, constipation, sweats, fevers, chills. He was aware of his temperature being elevated however states he feels a good it is more of a reaction to what is going on with him. He does not feel like anything is off or out of whack. 08/16/22 1000 Patient was sitting in the chair. Patient stated that it was nice getting out of bed. He did state that he was having severe pain especially with moving around. His pain while walking was a 10/10. However he did state that he was having 4/10 pain just sitting. He did state that it is a continuous constant pain in hip. He also denies any chest pain, shortness a breath, nausea, vomiting, diarrhea. He did state that he could possibly be constipated as he has not had a bowel movement since last Thursday. 08/15/22? 07:39 Patient c/o pain in right hip this morning with movement, notes pain is dull and somewhat improved from presentation with current medications - pain exacerbated by movement.? Denies any loss of sensation distal right extremity.? 08/14/22? 22:30 This is a 62-ye
[2022-08-17 12:32] LABS: Glucose Point of Care 116 mg/dl (65-105)
[2022-08-17 18:36] VITALS: BP 136/80; PULSE 76; RESP 16; TEMP 36.8; O2SAT 99
[2022-08-17 20:40] VITALS: BP 150/69; PULSE 70; RESP 16; TEMP 37; O2SAT 99
[2022-08-17 21:01] LABS: Glucose Point of Care 110 mg/dl (65-105)
[2022-08-18] MEDS: oxyCODONE HCL (*CRX) 5 MG TAB IR PO ×4 (00:04→13:30)
[2022-08-18] MEDS: ACETAMINOPHEN 500 MG TABLET 1000 MG PO ×3 (00:04→13:30)
[2022-08-18 00:06] VITALS: BP 152/75; PULSE 70; RESP 16; TEMP 36.6; O2SAT 99
[2022-08-18] MEDS: SODIUM CHLORIDE 0.9% IV 1,000 ML 100 ML IV CONT (01:18)
[2022-08-18 05:20] LABS: Basophils Absolute Auto 0.1 K/mm3 (0.0-0.1); Basophils Percent Auto 0.9 % (0.2-1.2); Eosinophils Absolute Auto 0.1 K/mm3 (0-0.3); Eosinophils Percent Auto 1.8 % (0-4.4); Hematocrit 23.9 % (42.0-52.0); Hemoglobin 8.1 g/dL (14.0-18.0); Immature Granulocyte Absolute 0.03 K/mm3 (0.00-0.031); Immature Granulocyte Percent A 0.5 % (0-0.5); Lymphocytes Absolute Auto 1.62 K/mm3 (0.9-3.2); Lymphocytes Percent Auto 24.5 % (18.3-44.2); Mean Corpuscular HGB Conc 33.9 g/dl (32-36); Mean Corpuscular Hemoglobin 32.7 pg (26-34); Mean Corpuscular Volume 96.4 fl (80-100); Mean Platelet Volume 8.7 fl (7.4-10.4); Monocytes Absolute Auto 0.8 K/mm3 (0.1-0.6); Monocytes Percent Auto 11.8 % (2.6-8.5); Neutrophils Percent Auto 60.5 % (45.5-73.1); Platelet Count Result 203 k/mm3 (150-375); Red Blood Count 2.48 M/mm3 (4.6-6.20); Red Cell Distribution Width 12.1 % (11.5-14.5); White Blood Count 6.6 K/mm3 (4.5-10.0)
[2022-08-18 05:29] VITALS: BP 122/70; PULSE 64; RESP 16; TEMP 36.6; O2SAT 97
[2022-08-18 05:41] LABS: Alanine Aminotransferase 16 U/L (6-50); Albumin Level 2.9 g/dL (3.5-5.1); Alkaline Phosphatase 36 U/L (38-126); Anion Gap 3 mmol/L (8-16); Aspartate Amino Transferase 26 U/L (17-59); Bilirubin,Total 0.4 mg/dL (0.2-1.3); Blood Urea Nitrogen 7 mg/dL (9-20); Calcium 7.7 mg/dL (8.4-10.2); Carbon Dioxide 27 mmol/L (22-30); Chloride 100 mmol/L (98-107); Estimated CRCL calculation 98 ml/min; Estimated Glomerular Filt Rate > 60; Glucose 81 mg/dL (65-110); Magnesium 1.9 mg/dL (1.6-2.3); Potassium 3.7 mmol/L (3.4-5.0); Sodium 130 mmol/L (137-145)
[2022-08-18 05:51] LABS: Glucose Point of Care 88 mg/dl (65-105)
--- NOTE | 2022-08-18 07:45 | PM.DS ---
DS: Admitting Diagnosis Discharge Date 08/18/22 0745 Admitting Diagnosis Right hip fracture repair, hyponatremia, Fall DS: Discharge Diagnosis Discharge Diagnosis (1) Closed intertrochanteric fracture of right femur: Code(s): S72.141A - Displaced intertrochanteric fracture of right femur, initial encounter for closed fracture Status: Acute Assessment and Plan: ? POD 2 of S/P right hip repair ortho has been consulted. pain reasonably controlled per patient - cont. current. Ortho to manage post op DVT per ortho, Eliismaelis PT/OT (2) Acute hyponatremia: Code(s): E87.1 - Hypo-osmolality and hyponatremia Status: Acute Assessment and Plan: - Current Na is 130 - suspect beer potomania. - Change IVF to NS at 100ml/hr - Continue to trend labs - urine osm pending, Na urine 43 - TSH 3.720 (3) Alcohol abuse: Code(s): F10.10 - Alcohol abuse, uncomplicated Status: Acute Assessment and Plan: - Ciwa protocol librium/lorazepam prn. - Thiamine/folate - recommend to cont. upon discharge. - Seems stable - CIWA appears to be 0 at this time (4) Tobacco abuse: Code(s): Z72.0 - Tobacco use Status: Acute Assessment and Plan: - 100 pack year history per patient.? Does not have PCP or medical care routinely. - Recommend o/p low dose ct screening per uspstf guidelines.? - Arrange for outpatient halfway f/u PCP. - Patch and gum PRN - Education given (5) Normocytic anemia: Code(s): D64.9 - Anemia, unspecified Status: Acute Assessment and Plan: Hgb 12.8 on presentation Current H/H 8.9/26.4 Probably a combination of dilution, acute blood loss, or possibly related to supplemental need Anemia labs iron 24, TIBC 226, % sat 11, Transferrin 151, Ferritin 250, B12 255, Folate 5.3 Start ferrous sulfate 324mg PO BID Continue to trend labs Transfuse as indicated (6) Fall: Code(s): W19.XXXA - Unspecified fall, initial encounter Status: Acute Assessment and Plan: Denies syncope/dizziness/lightheadedness.? Tripped d/t pet. No LOC during fall.? Down for >12 hours per patient.? CPK 195.? (7) Fever: Code(s): R50.9 - Fever, unspecified Status: Acute Assessment and Plan: Temp noted to be between 99.8-100.9 Blood cultures drawn Tylenol on board Continue to trend (8) Vitamin D deficiency: Code(s): E55.9 - Vitamin D deficiency, unspecified Status: Acute Assessment and Plan: Vit D <12.8 supplementation added DS: Summary Hospital Course Hospital Course: patient is 62-year-old male with a past medical history tobacco abuse appendectomy who presented to the ED after falling. Patient stated that he went to the bar and had a good time. Patient stated that when he got home he was trending of the house when he fell over the dog. Patient fell in the garage and was experiencing some right hip pain. Patient stated that he crawled to the phone to call for help. Patient had been lying on the floor for greater than 12 hours. Upon arrival to the ED it was noted that the patient did have some external rotation of the right leg. White count was slightly elevated at 12.8. X-ray of the hip showed intertrochanteric hip fracture. orthopedics was consulted and took patient for hip repair. Head CT was also performed due to fall and showed no intracranial findings. Chest x-ray was also normal. CPK was checked and was 195. It was noted that patient does have a lower sodium. Patient was given IV fluids and sodium has been trending up. H&H was noted to be normal upon arrival however was low postop. Anemia labs did show iron deficiency anemia and ferrous sulfate was started. Acute blood loss anemia is also a factor as well. Patient has been working with PT and OT and has been doing well. Patient will need to continue with a
[2022-08-18] MEDS: NICOTINE (*PBKC) 4 MG GUM PO (09:05)
[2022-08-18] MEDS: NICOTINE (*PBKC) 21 MG PATCH 1 PATCH TRANSDERM (09:05)
[2022-08-18] MEDS: SENNA/DOCUSATE SODIUM TABLET 2 TAB PO (09:06)
[2022-08-18] MEDS: APIXABAN 2.5 MG TABLET PO (09:06)
[2022-08-18] MEDS: THIAMINE HCL 200 MG/2 ML VIAL 100 MG IV PUSH (09:06)
[2022-08-18] MEDS: polyethylene glycoL 3350 17 GM POWD.PACK PO (09:06)
[2022-08-18] MEDS: FERROUS SULFATE 324 MG TABLET PO (09:07)
[2022-08-18] MEDS: FOLIC ACID 1 MG/0.2 ML INJ IV PUSH (09:08)
[2022-08-18 10:05] VITALS: BP 135/86; PULSE 81; RESP 14; TEMP 36.9; O2SAT 99
[2022-08-18 11:51] LABS: Glucose Point of Care 121 mg/dl (65-105)
--- NOTE | 2022-08-18 11:56 | PM.PNORT ---
Subjective Subjective Date/Time Seen: 08/18/22 11:56 postop day 3 right IT fracture. Patient is alert. He verbalized signs stable. Morning labs and noted. Incisions are dry. Patient has mild swelling in the right thigh. Overall pain is well controlled. He is progressing very well with physical therapy and is comfortable being partial weight-bearing. We will plan on patient being discharged today to home Objective Data Vital Signs Vital Signs: Vital Signs - 24 hr 08/17/22 18:36 08/17/22 20:40 08/17/22 20:00 Temperature 36.8 C 37.0 C Pulse Rate 76 70 Respiratory Rate 16 16 Blood Pressure 136/80 150/69 H Pulse Oximetry 99 99 Oxygen Delivery Room Air 08/18/22 00:06 08/18/22 05:29 08/18/22 10:05 Temperature 36.6 C 36.6 C 36.9 C Pulse Rate 70 64 81 Respiratory Rate 16 16 14 Blood Pressure 152/75 H 122/70 135/86 Pulse Oximetry 99 97 99 Oxygen Delivery 08/18/22 09:00 Temperature Pulse Rate Respiratory Rate Blood Pressure Pulse Oximetry Oxygen Delivery Room Air Intake/Output Intake/Output: Intake & Output 08/15/22 08/16/22 08/17/22 08/18/22 23:59 23:59 23:59 23:59 Intake Total 1060 2780 2280 1740 Output Total 390 044 3416 1400 Balance 210 1855 -520 340 Meds/Results Medications: Active Medications Generic Name Dose Route Start Last Admin Trade Name Freq PRN Reason Stop Dose Admin Acetaminophen 1,000 mg 08/15/22 18:00 08/18/22 05:45 Acetaminophen 500 Mg Tablet PO 1,000 mg Q6HR KAMI Administration Albuterol 2 puff 08/15/22 00:15 Albuterol Sulfate (*Sp) Aerosol 1 Puff INHALATION Q6HRT PRN Shortness Of Breath Apixaban 2.5 mg 08/16/22 09:00 08/18/22 09:06 Apixaban 2.5 Mg Tablet PO 2.5 mg Q12HR KAMI Administration Calcium Citrate 1 tablet 08/16/22 17:00 08/18/22 09:06 Calcium Citrate 315 Mg/Vitamin D 250 Units Tab PO 1 tablet BID KAMI Administration Chlordiazepoxide HCl 25 mg 08/15/22 00:03 Chlordiazepoxide (*Crx) 25 Mg Capsule PO Q6H PRN Withdrawal Ergocalciferol 50,000 units 08/16/22 13:00 08/16/22 13:23 Ergocalciferol 50,000 Units Capsule PO 09/20/22 09:01 50,000 units WEEKLY KAMI Administration Ferrous Sulfate 324 mg 08/16/22 17:00 08/18/22 09:07 Ferrous Sulfate 324 Mg Tablet PO 324 mg BIDWM KAMI Administration Folic Acid 1 mg 08/15/22 09:00 08/18/22 09:08 Folic Acid 1 Mg/0.2 Ml Inj IV PUSH 1 mg QAM KAMI Administration Haloperidol Lactate 2 mg 08/15/22 00:03 Haloperidol Lactate 5 Mg/Ml Vial IV PUSH Q2H PRN Delirium Sodium Chloride 1,000 mls @ 100 mls/hr 08/16/22 12:40 08/18/22 01:18 Normal Saline Iv IV CONT 100 mls/hr .Q10H KAMI Administration Lorazepam 2 mg 08/15/22 00:03 Lorazepam Inj (*Crx) 2 Mg/Ml Vial IV PUSH Q4H PRN Withdrawal Morphine Sulfate 2 mg 08/15/22 16:56 Morphine Sulfate (*Crx) 2 Mg/Ml Inj IV PUSH Q1H PRN Pain Rated 7-10 Naloxone HCl 0.1 mg 08/15/22 16:56 Naloxone Hcl 0.4 Mg/Ml Vial IV PUSH Q2M PRN Opiate Reversal Nicotine 1 patch 08/15/22 22:20 08/18/22 09:05 Nicotine (*Pbkc) 21 Mg Patch TRANSDERM 1 patch QAM KAMI Administration Nicotine Polacrilex 4 mg 08/16/22 12:42 08/18/22 09:05 Nicotine (*Pbkc) 4 Mg Gum PO 4 mg PRN PRN Administration Nicotine Cravings Ondansetron HCl 4 mg 08/15/22 00:03 Ondansetron Inj 4 Mg/2 Ml Vial IV PUSH Q6H PRN Nausea And Vomiting Oxycodone HCl 5 mg 08/15/22 21:00 08/18/22 09:06 Oxycodone Hcl (*Crx) 5 Mg Tab Ir PO 5 mg Q4HR KAMI Administration Oxycodone HCl 5 mg 08/15/22 16:56 Oxycodone Hcl (*Crx) 5 Mg Tab Ir PO Q4H PRN Pain Rated 4-10 Polyethylene Glycol 17 gm 08/16/22 09:00 08/18/22 09:06 Polyethylene Glycol 3350 17 Gm Powd.Pack PO 17 gm QAM KAMI Administration Senna/Docusate Sodium 2 tab 08/15/22 17:00 08/18/22 09:06 Senna/Docusate Sodium Tablet PO 2 tab BID S
[2022-08-18 14:10] VITALS: BP 131/72; PULSE 70; RESP 14; TEMP 36.7; O2SAT 98
[2022-08-19 17:12] LABS: Osmolality, Urine 498 mOsm/kg (50-1200)
== END 2022-08-18 16:10 | disposition home health service (06) | DRG 481 ==
LOC: ANHED 16:57 → ANH2MED 17:56
PROVIDERS: Nurse Practitioner; Nurse Practitioner Family; Orthopaedic Surgery; Physician Assistant; Admitting Provider Internal Medicine; Emergency Provider Emergency Medicine; PCP Family Medicine Adolescent Medicine; Visit Provider Nurse Practitioner
PROC: 0QS634Z Reposition Right Upper Femur with Internal Fixation Device, Percutaneous Approach (ICD-10-PCS; CPT 27245; principal; 2022-08-15 14:00)
DX: S72.141A Displaced intertrochanteric fracture of right femur, initial encounter for closed fracture (principal); E87.1 Hypo-osmolality and hyponatremia; F17.210 Nicotine dependence, cigarettes, uncomplicated; D64.9 Anemia, unspecified; R50.9 Fever, unspecified; F10.20 Alcohol dependence, uncomplicated; W01.0XXA Fall on same level from slipping, tripping and stumbling without subsequent striking against object, initial encounter; Y92.008 Other place in unspecified non-institutional (private) residence as the place of occurrence of the external cause; Z20.822 Contact with and (suspected) exposure to COVID-19
CPT/HCPCS: 36415; 70450; 71045; 73502; 80048; 80053; 80307; 81001; 82306; 82550; 82570; 82607; 82728; 82746; 82948; 83540; 83550; 83735; 83935; 84300; 84443; 84466; 85025; 85610; 85730; 86850; 86900; 86901; 87040; 87636; 93005; 96361; 96374; 96375; 96376; 97110; 97116; 97162; 97165; 97530; 97535; 99199; 99285; A9270; C1713; G0378; J0690; J1170; J2250; J2270; J2405; J2704; J3010; J3370; J3411; J7030; J7042; J7120